=== PATIENT | male | born 1940 | race Caucasian/White ===

== ENCOUNTER 2016-04-04 22:34 | Inpatient (IN) | payer BC ==
--- NOTE | ~2016-04-04 | HP ---
History And Physical [address] [place]. [address] NAME: GIAN LUNA MARIUM : 42 STATUS : ADM IN [facility]#: [id number] AGE: 75 ADM/REG DATE : 04/04/16 MR#: [id number] REPORT SERV DATE: 04/05/16 DICTATED BY: ROSHAN RAINEY DATE: 04/05/16 REPORT STATUS : Draft TRANSCRIBED BY: MODL DATE: 04/05/16 DATE OF ADMISSION: 04/04/2016 CHIEF COMPLAINT: A 75-year-old male presenting with increasing confusion and shortness of breath. HISTORY OF PRESENTING ILLNESS: The patient's history was obtained through careful interview with the patient and telephone conversation with his son, coupled with review of [facility] medical records. The patient states that he has been having increasing shortness of breath and dyspnea on exertion for about a week. He describes a cough productive of green sputum. He describes right lower lung abdominal discomfort, a sharp quality, 6/10 severity, exacerbated by cough. He has also noticed some increasing abdominal pain in the epigastric area with distention, sometimes it gets to a 10/10 severity. He has had slight nausea with this, but no vomiting. Then the patient has had increasing fevers and chills. He has lost his voice. He has felt light headed. He has noticed shaking in his hands at times. He describes his feet is feeling "like ice". When I talked to his son, it is clear that the patient has had increasing confusion over the last several days, but today the patient was "strange" and very out of character. He was somnolent at times, disoriented, and incoherent. REVIEW OF SYSTEMS: Otherwise, a 14-point review of systems was obtained and was negative. PAST MEDICAL HISTORY: 1. COPD. 2. Hypertension. 3. Elevated cholesterol. 4. Diabetes. 5. Peptic ulcer disease, seen by Dr. Ballard. 6. Coronary artery disease status post stent placement x4, most recently in October [address] Donato. 7. Gastroparesis. 8. Chronic pain management. 9. Nephrolithiasis. 10.Neuropathy. 11.Left basal ganglia lacunar stroke seen on CT scan in 2009. PAST SURGICAL HISTORY: 1. Neck surgery. 2. Gum surgery. History And Physical [address] [place]. [address] NAME: GIAN LUNA MARIUM : 42 STATUS : ADM IN [facility]#: [id number] AGE: 75 ADM/REG DATE : 04/04/16 MR#: [id number] REPORT SERV DATE: 04/05/16 DICTATED BY: ROSHAN RAINEY DATE: 04/05/16 REPORT STATUS : Draft TRANSCRIBED BY: MODL DATE: 04/05/16 3. Hernia repair. ALLERGIES: TO DARVON AND ALEVE. SOCIAL HISTORY: Began smoking when he was just 13 years old and he smoked two packs per day through all his life. He quit alcohol about 20 years ago. He is . His ex- is in a assisted facility. He lives with his son. FAMILY HISTORY: Heart disease. CURRENT MEDICATIONS: 1. Lipitor 40 mg daily. 2. Baclofen 10 mg p.o. t.i.d. 3. Coreg 3.125 mg p.o. b.i.d. 4. Plavix 75 mg daily. 5. Neurontin 600 mg p.o. q.h.s. 6. MS Contin 60 mg p.o. b.i.d. 7. Morphine Immediate Release 15 mg p.o. q.6 hours p.r.n. 8. Omeprazole 40 mg p.o. daily. PHYSICAL EXAMINATION: VITAL SIGNS: Temperature 97.8, pulse 107, blood pressure 123/93, respiratory rate 19, and O2 saturation 99% on 4 L nasal cannula. GENERAL: An ill-appearing male. He seems confused on my exam, but is alert and appropriate in his behavior. He is in respiratory distress with a moderately labored respiratory effort. HEENT: Pupils equal, round, and reactive to light. No conjunctival pallor. No scleral icterus. Nares are patent. Oropharynx is clear of obstruction. Moist mucous membranes. NECK: Trachea midline. No thyromegaly. LYMPH: No cervical lymphadenopathy. No supraclavicular lymphadenopathy. RESPIRATORY: The patient has inspiratory and expiratory wheezes, but mostly I recognized harsh upper respiratory rhonchi throughout the entire exam that predominates the exam. I do not appreciate wet rales. I do not appreciate any focal egophony. The patient has a labored respiratory effort. CARDIOVASCULAR: Tachycardic. Regular rhythm. No murmurs, rubs, or gallops. No current extremity edema is appreciated. ABDOMEN: Soft. The patient does have mild distention of his epigastric area with tenderness with slight guarding as well, but no rebound effect. Normal bowel sounds auscultated throughout. No hepatosplenomegaly. DERMATOLOGICAL: Warm and dry extremities. No pallor. No cyanosis. PSYCHIATRIC: The patient is alert and appropriate. He is poorly oriented to details of time and location, but seems oriented to his recent history. He has a flat affect, but claims to be in a good mood. LABORATORY DATA: ABG demonstrates pH 7.37, a PaCO2 of 52 from baseline PaCO2 of about 40, PaO2 of 137, and bicarb 29. History And Physical [address] [address] NAME: GIAN LUNA MARIUM : 42 STATUS : ADM IN [facility]#: [id number] AGE: 75 ADM/REG DATE : 04/04/16 MR#: [id number] REPORT SERV DATE: 04/05/16 DICTATED BY: ROSHAN RAINEY DATE: 04/05/16 REPORT STATUS : Draft TRANSCRIBED BY: WILD DATE: 04/05/16 White blood cell count 7.2, hemoglobin 14, hematocrit 43, and platelets 292. Sodium 140, potassium 4.2, chloride 99, bicarb 35, BUN 10, creatinine 0.82, and glucose 87. Influenza negative. AST 13, ALT 12, alkaline phosphatase 170, and total bilirubin 0.3. STUDIES: 1. Chest x-ray by my own evaluation shows COPD changes, but nothing acute. 2. EKG by my own evaluation shows sinus tachycardia. ASSESSMENT AND PLAN: 1. Hypercapnic respiratory failure. Baseline PaCO2 of about [address] on BiPAP overnight. Follow ABG. The patient has lethargy and confusion. 2. Chronic obstructive pulmonary disease exacerbation. Place on IV Solu-Medrol, Duo nebulizers, doxycycline. Check sputum culture. Negative influenza. 3. Confusion probably secondary to hypercapnia, but we will check a CT scan of the brain tonight. 4. Abdominal pain. We will check a stat CT scan of the abdomen because of guarding in his abdomen with described 10/10 pain at times. Try IV Reglan. History of gastroparesis. 5. Polyuria. Check urinalysis. I discussed the case in detail with Dr. Grayson, critical care physician, and the plan for BiPAP on a telemetry bed at this time. KPL/MODL Roshan Rainey M.D. / [id number] CC: MD Polly De Luna, VOICE OVER ARTIST
--- NOTE | ~2016-04-04 | IDS ---
Interim Discharge Summary [facility] [address] [place]. [address] NAME: GIAN LUNA MARIUM : 42 STATUS : ADM IN PAT#: [id number] AGE: 75 ADM/REG DATE : 04/04/16 MR#: [id number] REPORT SERV DATE: 04/11/16 DICTATED BY: MARQUIS OTT DATE: 04/11/16 REPORT STATUS : Draft TRANSCRIBED BY: MODL DATE: 04/11/16 ADMISSION DATE: 04/04/2016 DISCHARGE DATE: DATE OF INTERIM DISCHARGE SUMMARY: 04/11/2016. PROCEDURES DONE: 1. 04/04/2016 CT abdomen and pelvis without contrast; large amount of retained stool suggest secondary to impaction. Gas in proximal small bowel and colon suggesting obstructive pattern, may wish to consider imaging. The remainder of pelvis to exclude high-grade colonic obstruction distally. 2. 04/04/2016 CT of the head, stable mild to moderate atrophy type changes. 3. 04/04/2016 chest x-ray: No acute cardiopulmonary disease. 4. 04/05/2016 KUB fecal stasis. Minimal dilatation of small bowel, otherwise no evidence of acute abnormality within the abdomen. 5. 04/05/2016 chest x-ray: Hyperinflation. No acute cardiopulmonary abnormality. 6. 04/08/2016 KUB: No acute abnormality in the abdomen and pelvis. Moderate fecal stasis. A 2 mm nonobstructing right renal stone. CHIEF COMPLAINT: Shortness of breath. HISTORY OF HOSPITAL STAY: A 75-year-old white male with past medical history of COPD, active smoker, hypertension, hypercholesterolemia, diabetes, history of peptic ulcer disease, coronary artery disease status post stent, gastroparesis, chronic pain, nephrolithiasis, diabetic neuropathy, history of left basal lacunar stroke presenting with shortness of breath and confusion. The patient was admitted for further evaluation of his confusion and shortness of breath. The patient was found to be in acute exacerbation of COPD with acute on chronic hypercapnic respiratory failure. The patient was put on BiPAP. Eventually, the patient's confusion gradually resolved with aggressive use of BiPAP. The patient was started on steroids and subsequently was able to be breathing much better regarding COPD exacerbation. Unfortunately, the patient had fecal stasis that was pretty severe in nature. Extensive work has been done to try to give the patient GoLYTELY, Mag citrate, as well as lactulose to start the patient having BMs. Second KUB that was done on 04/05/2016 shows moderate fecal stasis. Unfortunately, the patient was declining treatment with the GoLYTELY in order to have bowel movements. Therefore, aggressive measures have been taken in order to promote bowel movement. DIAGNOSES ON DISCHARGE: 1. Confusion, shortness of breath, secondary to acute exacerbation of chronic obstructive pulmonary disease versus acute on chronic hypercapnic respiratory failure. Currently, this has resolved with the use of BiPAP. 2. Acute exacerbation of chronic obstructive pulmonary disease secondary to smoking. Currently, the patient has been getting breathing treatments as well as counseling not to smoke, so far his COPD has improved. 3. Acute on chronic hypercapnic respiratory failure. I advised patient to use his nasal cannula as well as BiPAP at night. Unfortunately, the patient states that his tubing Interim Discharge Summary [place] [id number] [facility] [place]. [address] NAME: GIAN LUNA MARIUM : 42 STATUS : ADM IN [facility]#: [id number] AGE: 75 ADM/REG DATE : 04/04/16 MR#: [id number] REPORT SERV DATE: 04/11/16 DICTATED BY: MARQUIS OTT DATE: 04/11/16 REPORT STATUS : Draft TRANSCRIBED BY: WILD DATE: 04/11/16 as well as his nasal cannula has been old that he uses at home as well as patient not able to have portable O2 tanks. Unfortunately, the patient has been paying the bills appropriately to the medical equipment company in order to maintain the lines as well as his portable O2 tank. 4. Fecal stasis. Continue the patient's on milk and molasses, Colace, and GoLYTELY in order to encourage the patient to move his bowels. His fecal stasis is quite severe at the time of presentation. Unfortunately, the patient cannot remember the last time he had a bowel movement prior to being admitted. Therefore, extensive workup has been done to get the patient to have excellent bowel movement. 5. Hypertension, currently stable. 6. Diabetes type 2. Continue the patient's sliding scale. 7. Chronic pain. The patient has been warned that the use of chronic narcotics causes constipation. The patient states that he has extensive degenerative disc disease, which prevents him from mobilizing. The patient was advised that he needs to continue mobilizing as well as taking laxatives in order to prevent constipation. FBJ/MODL Marquis Ott MD / [id number] CC: Marquis Ott MD
--- NOTE | ~2016-04-04 | DS ---
Discharge Summary [facility] [address] [place]. [address] NAME: GIAN DENTON MARIUM : 42 STATUS : DIS IN PAT#: [id number] AGE: 75 ADM/REG DATE : 04/04/16 MR#: [id number] REPORT SERV DATE: 04/16/16 DICTATED BY: CANDICE STEINER DATE: 04/15/16 REPORT STATUS : Draft TRANSCRIBED BY: MODL DATE: 04/15/16 ADMISSION DATE: 04/04/2016 DISCHARGE DATE: 04/15/2016 Mr. Denton is a 75-year-old male with a history of COPD, diabetes, and tobacco abuse, who presented to the hospital with a complaint of increasing shortness of breath and increasing confusion. For further details, please refer to H and P dictated by Dr. Harjeet Malik on 04/05/2016. HOSPITAL COURSE: Please refer to interim discharge summary dictated by Dr. Ott on 04/11/2016. This dictation is an addition to that interim discharge summary. I assumed care of the patient on 04/12/2016. At the time of my assumption of care, the patient was hemodynamically stable. The patient was evaluated by Physical Therapy with plan to be discharged to snf facility. While in-house, the patient was being followed by physical therapy. The patient progressively regained strength, and given his significant improvement, the patient opted not to go to snf facility anymore requiring to go home. Also, at the time of my assumption of care, the patient had fecal stasis, was severely constipated. The patient was started on management for that with subsequent bowel movement. Given his chronic use of opioid medication, for which he follows with the pain specialist at an outside clinic. Movantik was started to prevent future episodes of constipation. The patient has remained hemodynamically stable with resolution of his presenting complaints. Given these findings, the patient will be discharged home to follow with his primary care physician. DISCHARGE MEDICATIONS: Atorvastatin 40 mg p.o. daily, baclofen 10 mg p.o. three times a day, carvedilol 3.125 mg p.o. twice a day, Plavix 75 mg p.o. daily, gabapentin 300 mg p.o. at bedtime, MS Contin 60 mg p.o. q.12 h., omeprazole 40 mg p.o. daily, and trazodone 150 mg p.o. at bedtime. DISPOSITION: The patient will be discharged home. The patient has been counseled to abstain from tobacco use. DIET: Regular diet. ACTIVITY: As tolerated. Greater than 30 minutes was spent coordinating care, dictation of note, medication reconciliation, and writing of prescription. JUAN PABLO/WILD Candice Steiner MD Discharge Summary [place] [address] [place]. [address] NAME: GIAN DENTON MARIUM : 42 STATUS : DIS IN PAT#: [id number] AGE: 75 ADM/REG DATE : 04/04/16 MR#: [id number] REPORT SERV DATE: 04/16/16 DICTATED BY: CANDICE STEINER DATE: 04/15/16 REPORT STATUS : Draft TRANSCRIBED BY: WILD DATE: 04/15/16 / [id number] CC: Candice Steiner MD
[2016-04-04 21:18] LABS: BASOPHILS 0.3 %; BASOPHILS ABSOLUTE 0.02 10/3/uL (0.0-0.16); EOSINOPHILS 0.7 %; EOSINOPHILS ABSOLUTE 0.05 10/3/uL (0.0-0.53); ER CBC TAT 0 Hrs 07 Mins; HEMOGLOBIN 14.2 g/dL (13.6-17.8); IMMATURE GRANULOCYTES 0.3 %; IMMATURE GRANULOCYTES ABSOLUTE 0.02 10/3/uL (0.0-0.11); LYMPHOCYTES 12.1 %; LYMPHOCYTES ABSOLUTE 0.87 10/3/uL (0.67-4.30); MEAN CORPUSCULAR HEMOGLOB 30.8 pg (26.0-34.0); MEAN CORPUSCULAR VOLUME 93.3 fL (80-100); MEAN PLATELET VOLUME 10.2 fL (9.2-13.0); MONOCYTES 8.5 %; MONOCYTES ABSOLUTE 0.61 10/3/uL (0.21-1.20); NEUTROPHILS 78.1 %; NEUTROPHILS ABSOLUTE 5.61 10/3/uL (2.02-8.40); PLATELET COUNT 292 10/3/uL (150-400); RBC DISTRIBUTION WIDTH 13.9 % (12.0-16.0); RED CELL COUNT 4.61 10/6/uL (4.7-6.1); WHITE BLOOD CELLS 7.2 10/3/uL (4.5-10.5)
[2016-04-04 21:20] LABS: BE (BASE EXCESS) 3.3 MEQ/L (0 +/- 2.5); CARBOXYHEMOGLOBIN 3.4 % (0-3); DEVICE NC; HCO3 (ACTUAL BICARBONATE) 29.6 MEQ/L (23-27); HEMOBLOGIN CONTENT 13.9 G/DL (14-18); INSTRUMENT SERIAL # 8087; METHEMOGLOBIN 0.2 % (0-3); O2 CONTENT 18.8 VOL% (18-24); PCO2 (CO2 TENSION) 52 MMHG (35-45); PO2 (O2 TENSION) 138 MMHG (79-93); SAMPLE Arterial; pH 7.37 (7.37-7.43)
[2016-04-04 21:21] LABS: MANUAL DIFF NO %
[2016-04-04 21:33] LABS: ALBUMIN 3.3 G/DL (3.5-5.0); BUN (BLOOD UREA NITROGEN) 10 MG/DL (6-23); CHLORIDE, SERUM 99 MMOL/L (96-112); CREATININE 0.82 MG/DL (0.70-1.30); GFR AFRICAN AMERICAN 101 ML/MIN (>=60); GFR NON AFRICAN AMERICAN 87 ML/MIN (>=60); GLUCOSE, SERUM 87 MG/DL (60-99); POTASSIUM, SERUM 4.2 MMOL/L (3.5-5.3); SGOT(AST) 13 U/L (5-40); SGPT(ALT) 12 U/L (5-65); SODIUM, SERUM 140 MMOL/L (135-148); TOTAL BILIRUBIN 0.3 MG/DL (0-1.2)
[2016-04-04 21:34] LABS: A/G RATIO 0.8 (0.7-1.9); ALKALINE PHOSPHATASE 170 U/L (45-117); CO2 (CARBON DIOXIDE) 35 MMOL/L (24-34); GLOBULIN 4.4 G/DL (2.5-4.1); TOTAL PROTEIN 7.7 G/DL (6.0-8.5)
[2016-04-04 21:49] LABS: INFLUENZA A SCREEN NEGATIVE (NEGATIVE); INFLUENZA B SCREEN NEGATIVE (NEGATIVE)
[~2016-04-04 22:34] MED LIST: AMITIZA24 PO; ASAB PO; COREG3 PO; DULERA 200 MCG/13 GM INH; DUONEB INH; HABIT21 TOP; LIOR10 PO; LIPITOR40 PO; LORTAB10 PO; MIRALAXPKT PO; MSCONT100 PO; MSCONT60 PO; MSIMMR15 PO; MUCINEX1200 MG PO; NEUR600 PO; NITROSTAT0.4 MG SL; P10 PO; PLAVIX PO; PRILOSEC40 MG PO; PROTONIX PO; PROVHFA INH; REG5 PO; REQUIP1 PO; SOMATAB PO; SPIRIVA INH; STERAPRED DS10 MG PO; SUCR PO; TRAZ50 PO; TRAZODONE150 MG PO; VIBRA-TAB 100100 MG PO; ZOCOR20 PO; ZOFRAN8 PO
[2016-04-04] MEDS ORDERED: LIPITOR40 PO (22:59)
[2016-04-04] MEDS ORDERED: PLAVIX PO (22:59)
[2016-04-04] MEDS ORDERED: MSCONT60 PO (23:02)
[2016-04-04] MEDS ORDERED: *UNABLE2 (23:02)
[2016-04-04] MEDS ORDERED: NEUR600 PO (23:10)
[2016-04-04] MEDS ORDERED: MSIMMR15 PO (23:10)
[2016-04-04] MEDS ORDERED: LIOR10 PO (23:11)
[2016-04-04] MEDS ORDERED: COREG3 PO (23:11)
[2016-04-04] MEDS ORDERED: PRILOSEC40 MG PO (23:12)
[2016-04-05 04:09] LABS: ALLENS TEST Pos; BE (BASE EXCESS) 1.9 MEQ/L (0 +/- 2.5); CARBOXYHEMOGLOBIN 1.6 % (0-3); DEVICE NC; HCO3 (ACTUAL BICARBONATE) 27.6 MEQ/L (23-27); HEMOBLOGIN CONTENT 13.7 G/DL (14-18); INSTRUMENT SERIAL # 8083; METHEMOGLOBIN 0.4 % (0-3); O2 CONTENT 18.8 VOL% (18-24); OPERATOR ID 35190; PCO2 (CO2 TENSION) 47 MMHG (35-45); PO2 (O2 TENSION) 125 MMHG (79-93); SAMPLE Arterial; pH 7.38 (7.37-7.43)
[2016-04-05 07:04] LABS: BASOPHILS 0.1 %; BASOPHILS ABSOLUTE 0.01 10/3/uL (0.0-0.16); EOSINOPHILS 0 %; HEMATOCRIT 39.3 % (40.0-51.0); HEMOGLOBIN 12.9 g/dL (13.6-17.8); IMMATURE GRANULOCYTES 0.1 %; IMMATURE GRANULOCYTES ABSOLUTE 0.01 10/3/uL (0.0-0.11); LYMPHOCYTES 4.6 %; LYMPHOCYTES ABSOLUTE 0.32 10/3/uL (0.67-4.30); MEAN CORPUS HGB CONC 32.8 g/dL (32.0-36.0); MEAN CORPUSCULAR HEMOGLOB 30.7 pg (26.0-34.0); MEAN CORPUSCULAR VOLUME 93.6 fL (80-100); MEAN PLATELET VOLUME 10.2 fL (9.2-13.0); MONOCYTES 0.4 %; MONOCYTES ABSOLUTE 0.03 10/3/uL (0.21-1.20); NEUTROPHILS 94.8 %; PLATELET COUNT 282 10/3/uL (150-400); RBC DISTRIBUTION WIDTH 13.8 % (12.0-16.0)
[2016-04-05 07:06] LABS: MANUAL DIFF NO %
[2016-04-05 07:10] LABS: INTERNATIONAL NORMAL RATI 1.1 UNITS (-); PROTIME (NOT ORD) 14.1 SEC (12.0-14.5)
[2016-04-05 07:11] LABS: PARTIAL THROMBO TIME 41.4 SEC (22.5-37.2)
[2016-04-05 07:27] LABS: A/G RATIO 0.7 (0.7-1.9); ALBUMIN 2.8 G/DL (3.5-5.0); ALKALINE PHOSPHATASE 157 U/L (45-117); BUN (BLOOD UREA NITROGEN) 11 MG/DL (6-23); CHLORIDE, SERUM 102 MMOL/L (96-112); CO2 (CARBON DIOXIDE) 28 MMOL/L (24-34); CREATININE 0.75 MG/DL (0.70-1.30); GFR AFRICAN AMERICAN 105 ML/MIN (>=60); GFR NON AFRICAN AMERICAN 90 ML/MIN (>=60); GLOBULIN 4.1 G/DL (2.5-4.1); GLUCOSE, SERUM 168 MG/DL (60-99); POTASSIUM, SERUM 4.1 MMOL/L (3.5-5.3); SGOT(AST) 14 U/L (5-40); SGPT(ALT) 12 U/L (5-65); SODIUM, SERUM 139 MMOL/L (135-148); TOTAL BILIRUBIN 1.1 MG/DL (0-1.2); TOTAL PROTEIN 6.9 G/DL (6.0-8.5); TROPONIN I <0.02 NG/ML (<0.05); ULTRASENSITIVE TSH 0.284 MCIU/ML (0.358-3.740)
[2016-04-05 07:46] LABS: PROCALCITONIN <0.05 ng/mL (<0.5)
[2016-04-05] MEDS ORDERED: TRAZODONE150 MG PO (15:42)
[2016-04-06 04:28] LABS: BASOPHILS 0.1 %; BASOPHILS ABSOLUTE 0.01 10/3/uL (0.0-0.16); EOSINOPHILS 0 %; HEMATOCRIT 39.5 % (40.0-51.0); IMMATURE GRANULOCYTES 0.3 %; IMMATURE GRANULOCYTES ABSOLUTE 0.05 10/3/uL (0.0-0.11); LYMPHOCYTES 4.3 %; LYMPHOCYTES ABSOLUTE 0.64 10/3/uL (0.67-4.30); MANUAL DIFF NO %; MEAN CORPUS HGB CONC 32.9 g/dL (32.0-36.0); MEAN CORPUSCULAR HEMOGLOB 30.6 pg (26.0-34.0); MEAN CORPUSCULAR VOLUME 92.9 fL (80-100); MEAN PLATELET VOLUME 10.4 fL (9.2-13.0); MONOCYTES 2.6 %; MONOCYTES ABSOLUTE 0.39 10/3/uL (0.21-1.20); NEUTROPHILS 92.7 %; NEUTROPHILS ABSOLUTE 13.64 10/3/uL (2.02-8.40); PLATELET COUNT 280 10/3/uL (150-400); RED CELL COUNT 4.25 10/6/uL (4.7-6.1); WHITE BLOOD CELLS 14.7 10/3/uL (4.5-10.5)
[2016-04-06 04:43] LABS: A/G RATIO 0.7 (0.7-1.9); ALBUMIN 2.9 G/DL (3.5-5.0); ALKALINE PHOSPHATASE 142 U/L (45-117); BUN (BLOOD UREA NITROGEN) 22 MG/DL (6-23); CALCIUM, SERUM 8.9 MG/DL (8.5-10.4); CHLORIDE, SERUM 102 MMOL/L (96-112); CO2 (CARBON DIOXIDE) 28 MMOL/L (24-34); CREATININE 0.73 MG/DL (0.70-1.30); GFR AFRICAN AMERICAN 106 ML/MIN (>=60); GFR NON AFRICAN AMERICAN 91 ML/MIN (>=60); GLOBULIN 3.9 G/DL (2.5-4.1); GLUCOSE, SERUM 123 MG/DL (60-99); PHOSPHORUS, SERUM 2.9 MG/DL (2.5-4.5); POTASSIUM, SERUM 4.7 MMOL/L (3.5-5.3); SGOT(AST) 17 U/L (5-40); SGPT(ALT) 13 U/L (5-65); SODIUM, SERUM 138 MMOL/L (135-148); TOTAL BILIRUBIN 0.4 MG/DL (0-1.2); TOTAL PROTEIN 6.8 G/DL (6.0-8.5)
[2016-04-07 06:22] LABS: BASOPHILS 0.1 %; BASOPHILS ABSOLUTE 0.01 10/3/uL (0.0-0.16); EOSINOPHILS 0.2 %; EOSINOPHILS ABSOLUTE 0.02 10/3/uL (0.0-0.53); HEMATOCRIT 42.6 % (40.0-51.0); HEMOGLOBIN 14.2 g/dL (13.6-17.8); IMMATURE GRANULOCYTES 0.3 %; IMMATURE GRANULOCYTES ABSOLUTE 0.03 10/3/uL (0.0-0.11); LYMPHOCYTES 15.1 %; LYMPHOCYTES ABSOLUTE 1.46 10/3/uL (0.67-4.30); MEAN CORPUS HGB CONC 33.3 g/dL (32.0-36.0); MEAN CORPUSCULAR HEMOGLOB 30.9 pg (26.0-34.0); MEAN CORPUSCULAR VOLUME 92.8 fL (80-100); MEAN PLATELET VOLUME 10.5 fL (9.2-13.0); MONOCYTES 8.9 %; MONOCYTES ABSOLUTE 0.86 10/3/uL (0.21-1.20); NEUTROPHILS 75.4 %; NEUTROPHILS ABSOLUTE 7.26 10/3/uL (2.02-8.40); PLATELET COUNT 289 10/3/uL (150-400); RED CELL COUNT 4.59 10/6/uL (4.7-6.1); WHITE BLOOD CELLS 9.6 10/3/uL (4.5-10.5)
[2016-04-07 06:31] LABS: MANUAL DIFF NO %
[2016-04-07 06:34] LABS: A/G RATIO 0.7 (0.7-1.9); ALKALINE PHOSPHATASE 144 U/L (45-117); CALCIUM, SERUM 9.1 MG/DL (8.5-10.4); CHLORIDE, SERUM 102 MMOL/L (96-112); CO2 (CARBON DIOXIDE) 29 MMOL/L (24-34); CREATININE 0.81 MG/DL (0.70-1.30); GFR AFRICAN AMERICAN 101 ML/MIN (>=60); GFR NON AFRICAN AMERICAN 88 ML/MIN (>=60); GLOBULIN 4.2 G/DL (2.5-4.1); PHOSPHORUS, SERUM 2.2 MG/DL (2.5-4.5); SGOT(AST) 20 U/L (5-40); SGPT(ALT) 16 U/L (5-65); SODIUM, SERUM 139 MMOL/L (135-148); TOTAL PROTEIN 7.2 G/DL (6.0-8.5)
[2016-04-07 06:37] LABS: BUN (BLOOD UREA NITROGEN) 17 MG/DL (6-23); GLUCOSE, SERUM 91 MG/DL (60-99)
[2016-04-08 05:34] LABS: BASOPHILS 0 %; EOSINOPHILS 0 %; HEMATOCRIT 42.6 % (40.0-51.0); HEMOGLOBIN 14.2 g/dL (13.6-17.8); IMMATURE GRANULOCYTES 0.3 %; IMMATURE GRANULOCYTES ABSOLUTE 0.03 10/3/uL (0.0-0.11); LYMPHOCYTES 5.6 %; LYMPHOCYTES ABSOLUTE 0.65 10/3/uL (0.67-4.30); MEAN CORPUS HGB CONC 33.3 g/dL (32.0-36.0); MEAN CORPUSCULAR HEMOGLOB 31.1 pg (26.0-34.0); MEAN CORPUSCULAR VOLUME 93.4 fL (80-100); MEAN PLATELET VOLUME 10.6 fL (9.2-13.0); MONOCYTES ABSOLUTE 0.47 10/3/uL (0.21-1.20); NEUTROPHILS 90.1 %; NEUTROPHILS ABSOLUTE 10.48 10/3/uL (2.02-8.40); PLATELET COUNT 289 10/3/uL (150-400); RBC DISTRIBUTION WIDTH 13.8 % (12.0-16.0); RED CELL COUNT 4.56 10/6/uL (4.7-6.1); WHITE BLOOD CELLS 11.6 10/3/uL (4.5-10.5)
[2016-04-08 05:36] LABS: MANUAL DIFF NO %
[2016-04-08 05:50] LABS: A/G RATIO 0.6 (0.7-1.9); ALBUMIN 2.6 G/DL (3.5-5.0); ALKALINE PHOSPHATASE 135 U/L (45-117); BUN (BLOOD UREA NITROGEN) 21 MG/DL (6-23); CALCIUM, SERUM 8.7 MG/DL (8.5-10.4); CHLORIDE, SERUM 100 MMOL/L (96-112); CO2 (CARBON DIOXIDE) 29 MMOL/L (24-34); CREATININE 0.91 MG/DL (0.70-1.30); GFR AFRICAN AMERICAN 96 ML/MIN (>=60); GFR NON AFRICAN AMERICAN 83 ML/MIN (>=60); GLOBULIN 4.2 G/DL (2.5-4.1); GLUCOSE, SERUM 218 MG/DL (60-99); PHOSPHORUS, SERUM 2.9 MG/DL (2.5-4.5); POTASSIUM, SERUM 4.6 MMOL/L (3.5-5.3); SGOT(AST) 20 U/L (5-40); SGPT(ALT) 21 U/L (5-65); SODIUM, SERUM 139 MMOL/L (135-148); TOTAL BILIRUBIN 0.7 MG/DL (0-1.2); TOTAL PROTEIN 6.8 G/DL (6.0-8.5)
[2016-04-09 07:11] LABS: BASOPHILS 0.1 %; BASOPHILS ABSOLUTE 0.01 10/3/uL (0.0-0.16); EOSINOPHILS 0 %; HEMOGLOBIN 13.7 g/dL (13.6-17.8); IMMATURE GRANULOCYTES 0.4 %; IMMATURE GRANULOCYTES ABSOLUTE 0.05 10/3/uL (0.0-0.11); LYMPHOCYTES 8.5 %; LYMPHOCYTES ABSOLUTE 0.97 10/3/uL (0.67-4.30); MEAN CORPUS HGB CONC 34.3 g/dL (32.0-36.0); MEAN CORPUSCULAR HEMOGLOB 31.7 pg (26.0-34.0); MEAN CORPUSCULAR VOLUME 92.6 fL (80-100); MEAN PLATELET VOLUME 10.7 fL (9.2-13.0); MONOCYTES 9.6 %; MONOCYTES ABSOLUTE 1.09 10/3/uL (0.21-1.20); NEUTROPHILS 81.4 %; NEUTROPHILS ABSOLUTE 9.24 10/3/uL (2.02-8.40); PLATELET COUNT 280 10/3/uL (150-400); RBC DISTRIBUTION WIDTH 13.9 % (12.0-16.0); RED CELL COUNT 4.32 10/6/uL (4.7-6.1); WHITE BLOOD CELLS 11.4 10/3/uL (4.5-10.5)
[2016-04-09 07:17] LABS: MANUAL DIFF NO %
[2016-04-09 07:28] LABS: ALBUMIN 2.8 G/DL (3.5-5.0); BUN (BLOOD UREA NITROGEN) 21 MG/DL (6-23); CALCIUM, SERUM 9.3 MG/DL (8.5-10.4); CHLORIDE, SERUM 100 MMOL/L (96-112); CO2 (CARBON DIOXIDE) 29 MMOL/L (24-34); GLUCOSE, SERUM 121 MG/DL (60-99); POTASSIUM, SERUM 4.4 MMOL/L (3.5-5.3); SGOT(AST) 17 U/L (5-40); SODIUM, SERUM 138 MMOL/L (135-148)
[2016-04-09 07:31] LABS: A/G RATIO 0.7 (0.7-1.9); ALKALINE PHOSPHATASE 124 U/L (45-117); CREATININE 0.76 MG/DL (0.70-1.30); GFR AFRICAN AMERICAN 104 ML/MIN (>=60); GFR NON AFRICAN AMERICAN 90 ML/MIN (>=60); GLOBULIN 3.8 G/DL (2.5-4.1); PHOSPHORUS, SERUM 2.9 MG/DL (2.5-4.5); SGPT(ALT) 19 U/L (5-65); TOTAL BILIRUBIN 0.3 MG/DL (0-1.2); TOTAL PROTEIN 6.6 G/DL (6.0-8.5)
[2016-04-10 06:54] LABS: BASOPHILS 0 %; EOSINOPHILS 0 %; HEMATOCRIT 40.2 % (40.0-51.0); HEMOGLOBIN 13.2 g/dL (13.6-17.8); IMMATURE GRANULOCYTES 0.5 %; IMMATURE GRANULOCYTES ABSOLUTE 0.05 10/3/uL (0.0-0.11); LYMPHOCYTES 8.7 %; LYMPHOCYTES ABSOLUTE 0.86 10/3/uL (0.67-4.30); MEAN CORPUS HGB CONC 32.8 g/dL (32.0-36.0); MEAN CORPUSCULAR HEMOGLOB 30.9 pg (26.0-34.0); MEAN CORPUSCULAR VOLUME 94.1 fL (80-100); MEAN PLATELET VOLUME 10.7 fL (9.2-13.0); MONOCYTES 5.6 %; MONOCYTES ABSOLUTE 0.55 10/3/uL (0.21-1.20); NEUTROPHILS 85.2 %; NEUTROPHILS ABSOLUTE 8.44 10/3/uL (2.02-8.40); PLATELET COUNT 283 10/3/uL (150-400); RED CELL COUNT 4.27 10/6/uL (4.7-6.1); WHITE BLOOD CELLS 9.9 10/3/uL (4.5-10.5)
[2016-04-10 07:00] LABS: MANUAL DIFF NO %
[2016-04-10 07:04] LABS: PHOSPHORUS, SERUM 3.4 MG/DL (2.5-4.5)
[2016-04-11 06:34] LABS: ALBUMIN 2.4 G/DL (3.5-5.0); BUN (BLOOD UREA NITROGEN) 21 MG/DL (6-23); CALCIUM, SERUM 8.9 MG/DL (8.5-10.4); CHLORIDE, SERUM 101 MMOL/L (96-112); CO2 (CARBON DIOXIDE) 27 MMOL/L (24-34); CREATININE 0.77 MG/DL (0.70-1.30); GFR AFRICAN AMERICAN 104 ML/MIN (>=60); GFR NON AFRICAN AMERICAN 89 ML/MIN (>=60); GLUCOSE, SERUM 178 MG/DL (60-99); PHOSPHORUS, SERUM 3.4 MG/DL (2.5-4.5); POTASSIUM, SERUM 4.5 MMOL/L (3.5-5.3); SODIUM, SERUM 137 MMOL/L (135-148)
[2016-04-13 07:08] LABS: BASOPHILS 0.4 %; BASOPHILS ABSOLUTE 0.03 10/3/uL (0.0-0.16); EOSINOPHILS 2.5 %; EOSINOPHILS ABSOLUTE 0.21 10/3/uL (0.0-0.53); HEMATOCRIT 39.5 % (40.0-51.0); HEMOGLOBIN 12.9 g/dL (13.6-17.8); IMMATURE GRANULOCYTES 2.1 %; IMMATURE GRANULOCYTES ABSOLUTE 0.17 10/3/uL (0.0-0.11); LYMPHOCYTES 17.9 %; LYMPHOCYTES ABSOLUTE 1.48 10/3/uL (0.67-4.30); MEAN CORPUS HGB CONC 32.7 g/dL (32.0-36.0); MEAN CORPUSCULAR HEMOGLOB 30.9 pg (26.0-34.0); MEAN CORPUSCULAR VOLUME 94.7 fL (80-100); MEAN PLATELET VOLUME 10.2 fL (9.2-13.0); MONOCYTES 13.3 %; NEUTROPHILS 63.8 %; PLATELET COUNT 291 10/3/uL (150-400); RED CELL COUNT 4.17 10/6/uL (4.7-6.1); WHITE BLOOD CELLS 8.3 10/3/uL (4.5-10.5)
[2016-04-13 07:10] LABS: MANUAL DIFF NO %
[2016-04-13 07:30] LABS: A/G RATIO 0.6 (0.7-1.9); ALBUMIN 2.2 G/DL (3.5-5.0); ALKALINE PHOSPHATASE 119 U/L (45-117); BUN (BLOOD UREA NITROGEN) 20 MG/DL (6-23); CALCIUM, SERUM 8.4 MG/DL (8.5-10.4); CHLORIDE, SERUM 100 MMOL/L (96-112); CO2 (CARBON DIOXIDE) 30 MMOL/L (24-34); CREATININE 0.69 MG/DL (0.70-1.30); GFR AFRICAN AMERICAN 108 ML/MIN (>=60); GFR NON AFRICAN AMERICAN 94 ML/MIN (>=60); GLOBULIN 3.6 G/DL (2.5-4.1); GLUCOSE, SERUM 94 MG/DL (60-99); POTASSIUM, SERUM 4.5 MMOL/L (3.5-5.3); SGOT(AST) 24 U/L (5-40); SGPT(ALT) 33 U/L (5-65); SODIUM, SERUM 138 MMOL/L (135-148); TOTAL BILIRUBIN 0.5 MG/DL (0-1.2); TOTAL PROTEIN 5.8 G/DL (6.0-8.5)
[2016-04-14 06:17] LABS: BASOPHILS 0.2 %; BASOPHILS ABSOLUTE 0.02 10/3/uL (0.0-0.16); EOSINOPHILS 3.2 %; EOSINOPHILS ABSOLUTE 0.27 10/3/uL (0.0-0.53); HEMATOCRIT 37.4 % (40.0-51.0); HEMOGLOBIN 12.1 g/dL (13.6-17.8); IMMATURE GRANULOCYTES 2.9 %; IMMATURE GRANULOCYTES ABSOLUTE 0.24 10/3/uL (0.0-0.11); LYMPHOCYTES 15.7 %; LYMPHOCYTES ABSOLUTE 1.31 10/3/uL (0.67-4.30); MEAN CORPUS HGB CONC 32.4 g/dL (32.0-36.0); MEAN CORPUSCULAR HEMOGLOB 29.8 pg (26.0-34.0); MEAN CORPUSCULAR VOLUME 92.1 fL (80-100); MEAN PLATELET VOLUME 10.2 fL (9.2-13.0); MONOCYTES 13.2 %; NEUTROPHILS 64.8 %; NEUTROPHILS ABSOLUTE 5.42 10/3/uL (2.02-8.40); PLATELET COUNT 302 10/3/uL (150-400); RBC DISTRIBUTION WIDTH 14.1 % (12.0-16.0); RED CELL COUNT 4.06 10/6/uL (4.7-6.1); WHITE BLOOD CELLS 8.4 10/3/uL (4.5-10.5)
[2016-04-14 06:22] LABS: MANUAL DIFF NO %
[2016-04-14 06:26] LABS: A/G RATIO 0.7 (0.7-1.9); ALBUMIN 2.3 G/DL (3.5-5.0); ALKALINE PHOSPHATASE 120 U/L (45-117); BUN (BLOOD UREA NITROGEN) 20 MG/DL (6-23); CALCIUM, SERUM 8.6 MG/DL (8.5-10.4); CHLORIDE, SERUM 103 MMOL/L (96-112); CO2 (CARBON DIOXIDE) 31 MMOL/L (24-34); CREATININE 0.69 MG/DL (0.70-1.30); GFR AFRICAN AMERICAN 108 ML/MIN (>=60); GFR NON AFRICAN AMERICAN 94 ML/MIN (>=60); GLOBULIN 3.4 G/DL (2.5-4.1); GLUCOSE, SERUM 96 MG/DL (60-99); POTASSIUM, SERUM 4.5 MMOL/L (3.5-5.3); SGOT(AST) 22 U/L (5-40); SGPT(ALT) 31 U/L (5-65); SODIUM, SERUM 139 MMOL/L (135-148); TOTAL BILIRUBIN 0.3 MG/DL (0-1.2); TOTAL PROTEIN 5.7 G/DL (6.0-8.5)
[2016-04-15 06:08] LABS: BASOPHILS 0.2 %; BASOPHILS ABSOLUTE 0.02 10/3/uL (0.0-0.16); EOSINOPHILS 2.5 %; EOSINOPHILS ABSOLUTE 0.24 10/3/uL (0.0-0.53); HEMOGLOBIN 12.2 g/dL (13.6-17.8); IMMATURE GRANULOCYTES 1.4 %; IMMATURE GRANULOCYTES ABSOLUTE 0.13 10/3/uL (0.0-0.11); LYMPHOCYTES 11.1 %; LYMPHOCYTES ABSOLUTE 1.06 10/3/uL (0.67-4.30); MEAN CORPUS HGB CONC 32.1 g/dL (32.0-36.0); MEAN CORPUSCULAR HEMOGLOB 30.7 pg (26.0-34.0); MEAN PLATELET VOLUME 10.3 fL (9.2-13.0); MONOCYTES 10.1 %; MONOCYTES ABSOLUTE 0.96 10/3/uL (0.21-1.20); NEUTROPHILS 74.7 %; NEUTROPHILS ABSOLUTE 7.13 10/3/uL (2.02-8.40); PLATELET COUNT 303 10/3/uL (150-400); RBC DISTRIBUTION WIDTH 13.9 % (12.0-16.0); RED CELL COUNT 3.97 10/6/uL (4.7-6.1); WHITE BLOOD CELLS 9.5 10/3/uL (4.5-10.5)
[2016-04-15 06:10] LABS: MANUAL DIFF NO %; MEAN CORPUSCULAR VOLUME 95.7 fL (80-100)
[2016-04-15 06:17] LABS: A/G RATIO 0.6 (0.7-1.9); ALBUMIN 2.1 G/DL (3.5-5.0); ALKALINE PHOSPHATASE 121 U/L (45-117); CALCIUM, SERUM 8.1 MG/DL (8.5-10.4); CHLORIDE, SERUM 100 MMOL/L (96-112); CO2 (CARBON DIOXIDE) 31 MMOL/L (24-34); CREATININE 0.64 MG/DL (0.70-1.30); GFR AFRICAN AMERICAN 112 ML/MIN (>=60); GFR NON AFRICAN AMERICAN 96 ML/MIN (>=60); GLOBULIN 3.7 G/DL (2.5-4.1); GLUCOSE, SERUM 91 MG/DL (60-99); POTASSIUM, SERUM 4.3 MMOL/L (3.5-5.3); SGOT(AST) 20 U/L (5-40); SGPT(ALT) 31 U/L (5-65); SODIUM, SERUM 139 MMOL/L (135-148); TOTAL BILIRUBIN 0.4 MG/DL (0-1.2); TOTAL PROTEIN 5.8 G/DL (6.0-8.5)
[2016-04-15 06:18] LABS: BUN (BLOOD UREA NITROGEN) 14 MG/DL (6-23)
[2016-04-15] MEDS ORDERED: MOVANTIK25 MG PO (12:06)
[2016-04-15] MEDS ORDERED: DUONEB INH (12:16)
== END 2016-04-15 13:59 | disposition home health service (06) | DRG 189 ==
LOC: ER 22:34 → 2SO 23:11
PROVIDERS: Emergency Medicine; Hospitalist
PROC: 5A09457 Assistance with Respiratory Ventilation, 24-96 Consecutive Hours, Continuous Positive Airway Pressure (ICD-10-PCS; principal; 2016-04-05)
DX: J96.02 Acute respiratory failure with hypercapnia (principal); E11.42 Type 2 diabetes mellitus with diabetic polyneuropathy; J44.1 Chronic obstructive pulmonary disease with (acute) exacerbation; K31.84 Gastroparesis; R10.9 Unspecified abdominal pain; K56.41 Fecal impaction; R35.8 Other polyuria; E78.00 Pure hypercholesterolemia, unspecified; F17.210 Nicotine dependence, cigarettes, uncomplicated; I10 Essential (primary) hypertension; I25.10 Atherosclerotic heart disease of native coronary artery without angina pectoris; E11.43 Type 2 diabetes mellitus with diabetic autonomic (poly)neuropathy; F11.90 Opioid use, unspecified, uncomplicated; N20.0 Calculus of kidney; Z95.5 Presence of coronary angioplasty implant and graft; Z86.73 Personal history of transient ischemic attack (TIA), and cerebral infarction without residual deficits; Z98.890 Other specified postprocedural states
CPT/HCPCS: 36600; 70450; 71010; 74000; 74020; 74150; 80053; 80069; 82330; 82803; 82805; 82947; 83605; 83735; 83880; 84100; 84132; 84145; 84295; 84443; 84484; 85014; 85025; 85610; 85730; 87040; 87070; 87205; 87449; 87804; 93005; 94640; 94660; 97110-GP; 97116-GP; 97161-GP; 97164-GP; 99291; A9270-GY; G8978-CJ-GP; G8979-CJ-GP; G8980-CJ-GP; J2405; J2765; J2920; J2930